=== PATIENT | female | born 1945 | race Caucasian/White ===

== ENCOUNTER → 2023-12-05 13:58 | Outpatient (REF) | payer MEDICARE, OTHER, SELFPAY | LOC: WDC 13:58 | PROVIDERS: ATTENDING PHYSICIAN Internal Medicine | DX: Z12.31 Encounter for screening mammogram for malignant neoplasm of breast (principal) | CPT/HCPCS: 77063; 77067 ==

== ENCOUNTER 2024-02-05 04:26 | Inpatient (IN) | payer MEDICARE, OTHER, SELFPAY ==
[2024-02-04 23:26] VITALS: BP 208/86
[2024-02-04 23:30] VITALS: BMI 29.7
[2024-02-04 23:41] LABS: % Basophils 0.5 % (0-2); % Eosinophils 0.6 % (0-6); % Immature Granulocytes 0.5 % (0-0.5); % Lymphocytes 10.3 % (20.5-51.1); % Monocytes 4.4 % (1.7-9.3); % Neutrophils 83.7 % (42.2-75.2); Absolute Basophils 0.1 10^3/uL (0-0.2); Absolute Eosinophils 0.1 10^3/uL (0-0.7); Absolute Immature Granulocytes 0.1 10^3/uL (0-0.05); Absolute Lymphocytes 1.5 10^3/uL (1.2-3.4); Absolute Monocytes 0.6 10^3/uL (0.1-0.6); Absolute Neutrophils 11.8 10^3/uL (1.4-6.5); Hematocrit 44.3 % (37.0-47.0); Hemoglobin 15.4 g/dL (12.0-16.0); Mean Corp Hgb Conc. 34.8 g/dL (33.0-37.0); Mean Corpuscular Hgb 29.6 pg (27.0-31.0); Mean Corpuscular Volume 85.2 fL (81.0-99.0); Mean Platelet Volume 11.2 fL (7.4-10.4); Nucleated Red Blood Cells % 0 %; Platelet Count 237 10^3/uL (130-400); Red Cell Dist. Width 12.2 % (11.5-14.5); White Blood Cell Count 14.1 10^3/uL (4.8-10.8)
[2024-02-04 23:55] VITALS: BP 177/91
[2024-02-04 23:55] LABS: ALT (SGPT) 69 U/L (0-35); AST (SGOT) 50 U/L (14-36); Albumin 4.3 g/dl (3.5-5.0); Alkaline Phosphatase 172 U/L (38-126); Blood Urea Nitrogen 15 mg/dl (7-17); Calcium 9.2 mg/dl (8.4-10.2); Carbon Dioxide 26 mmol/L (22-30); Chloride 102 mmol/L (98-107); Estimated Creatinine Clearance 77 ml/min; Glucose 174 mg/dl (70-99); Potassium 3.7 mmol/L (3.5-5.1); Sodium 137 mmol/L (135-145); Total Bilirubin 0.5 mg/dl (0.2-1.3); Total Protein 7.1 g/dl (6.3-8.2); eGFR > 60.00
[2024-02-05] VITALS (26 sets, daily range): BP systolic 113–192; BP diastolic 40–98; BMI 29.3
[2024-02-05 00:06] LABS: Troponin I < 0.012 ng/ml
[2024-02-05 00:48] LABS: Lipase 135 U/L (23-300)
--- NOTE | 2024-02-05 01:30 | ED.GENMED ---
History of Present Illness
General
Chief Complaint: Chest Pain
Source: patient
Exam Limitations: none
Time Seen by Provider: 02/04/24 23:24
Travel History
Have you had any contact with someone who has COVID-19?: No
Do you have any symptoms of coronavirus? Fever > 100 degrees, chills, cough, shortness of breath, sore throat, loss of taste or smell, muscle aches, or headache?: No
History of Present Illness
History of Present Illness:
78-year-old female who presents with epigastric abdominal pain. She had a similar episode last week. On the right today pain started around 4:30 PM. She did try to eat a little bit for dinner. She states her appetite has been suppressed a bit
this evening. No fevers. No diarrhea. No melena. No shortness of breath.
Past History
Past History
ED Past Medical History: GERD, Hypercholesterolemia and Other (dry macular degeneration)
ED Past Surgical History: None
Social History
Tobacco: Non-smoker
Alcohol: None
Personal: Single
Family History
Family History: Other (Father with ALS)
Phy Exam
Physical Exam
Physical Exam:
CONSTITUTIONAL Patient alert and oriented to person, place and time. Well-appearing. Vital signs reviewed.
HEAD atraumatic, normocephalic.
EYES eyelids normal to inspection, Extraocular muscles intact, Conjunctiva normal, Sclera normal.
NECK normal range of motion, Trachea midline, no jugular venous distention.
RESPIRATORY CHEST No respiratory distress noted, Chest expansion equal, Bilateral breath sounds clear.
CARDIOVASCULAR regular rate and rhythm, systolic ejection murmur noted
ABDOMEN mild epigastric tenderness, moderate right upper quadrant tenderness.
BACK normal inspection, no obvious deformities
UPPER EXTREMITY range of motion normal, Motor strength normal, no cyanosis, no edema.
LOWER EXTREMITY range of motion normal, Motor strength normal, no cyanosis, no edema.
NEURO Speech normal, No focal motor deficits, Cintia coma scale 15, Memory normal, Cranial Nerves intact to screening exam.
Scores
Heart Score for Chest Pain Patients
STEMI patient?: Not applicable
Course
Orders/Labs/Results
Orders:
Orders
02/04/24 23:25
Electrocardiogram (*1) Urgent
Reason for Study: Chest Pain
EKG- Treatment ONCE
02/04/24 23:30
Complete Blood Count/With Diff Urgent
Comprehensive Metabolic Panel Urgent
Lipase Urgent
Comment: ADD ON
Troponin I Urgent
02/04/24 23:59
Add On- LAB Urgent
Tests Added?: lipase
02/05/24 00:04
CT Abd/pelvis W Iv Cont Urgent
Reason For Exam: mid abd pain, leukocytosis
02/05/24 01:39
Morphine Sulfate 2 mg IV NOW STA
02/05/24 01:44
Ampicillin/Sulbactam 3 G [Unasyn] 3 gm 0.9% Sodium Chloride 100 ml [Nss] 100 ml IV NOW
Abnormal Lab Results
02/04/24
23:30
WBC 14.1 H 10^3/uL
(4.8-10.8)
MPV 11.2 H fL
(7.4-10.4)
Abs Immat Gran (auto) 0.1 H 10^3/uL
(0-0.05)
Absolute Neuts (auto) 11.8 H 10^3/uL
(1.4-6.5)
Neutrophils % 83.7 H %
(42.2-75.2)
Lymphocytes % 10.3 L %
(20.5-51.1)
Glucose 174 H mg/dl
(70-99)
AST 50 H U/L
(14-36)
ALT 69 H U/L
(0-35)
Alkaline Phosphatase 172 H U/L
(38-126)
02/04/24 23:30
02/04/24 23:30
Vital Signs
Initial and Last Documented VS:
Initial Vital Signs
Temp Pulse Resp BP Pulse Ox
98.8 F 86 19 208/86 96
02/04/24 23:26 02/04/24 23:26 02/04/24 23:26 02/04/24 23:26 02/04/24 23:26
Last Documented Vital Signs
Temp Pulse Resp BP Pulse Ox
98.8 F 88 20 192/88 91
02/04/24 23:26 02/05/24 01:30 02/05/24 01:30 02/05/24 01:30 02/05/24 01:30
MDM/Problems Addressed
MDM/Problems Addressed:
Cholelithiasis, acute cholecystitis, acute hypertension
*Radiology
Radiology exam reviewed: preliminary read by ED provider (Gallstone noted, no free air) and radiology read reviewed
*Pulse Oximetry
Patient hypoxic: no
*EKG
Interpreted by ED Provider?: Yes
Interpretation: normal
Rate: normal
Rhythm: sinus
Ischemia: non-specific ST changes
*Fire Coordinator Interpretation
Rate: normal
Interpretation: normal
Rhythm: sinus
*Critical Care Note
Total Time (30-74mins, 75-104mins- exclusive of procedures): Not Applicable
Data Reviewed
Review of Other/Old Records Reveals: Other (Prior echocardiogram from April 2023 reveals EF of 55 to 60% and mild . )
Source: patient
Further Testing Considered But Not Given:
Considered ultrasound and CT suspicious for cholecystitis with small bump in LFTs and acidosis noted
Patient Management
Discussion with other providers: Hospitalist
Escalation/DeEscalation of care consider admission/obs:
78-year-old female with epigastric and right upper quadrant pain. Found to have large gallstone and suspected cholecystitis. Does have a leukocytosis of 14 K. IV antibiotics. Admit
ED Attending Note
-
Portions of this chart may have been created with voice recognition software.� Occasional wrong word or��sound alike� substitutions may have occurred due to the inherent limitations of voice recognition software.
Discharge Plan
Departure
Patient Disposition: Admit
Date of Disposition: 02/05/24
Time of Disposition: 01:44
Admit to: Med/Surg
Presentation/result/management discussed w/ accepting MD/DO: Hospitalist
Discharge Problem:
Acute calculous cholecystitis
Prescriptions:
No Action
aspirin [Salty Low Dose Aspirin] 81 MG tablet,delayed release (DR/EC)
81 mg PO DAILY
Centrum Silver 1 EACH tablet
1 ea PO DAILY
esomeprazole magnesium [Nexium 24HR] 20 MG tablet,delayed release (DR/EC)
20 mg PO DAILY
Caltrate-D3 Plus Minerals 1 EACH tablet
1 ea PO DAILY
Oxybutynin Chloride
10 mg PO DAILY
atorvastatin 40 mg Tablet
40 mg PO DAILY
Colace 50 mg Capsule
50 mg PO DAILY PRN (Reason: constipation)
Ocuvite Tablet
1 tab PO DAILY
Referrals:
Malcolm Perry MD [Family Provider] -
Interventions
Interventions:
*Risk Screen - Suicide Last Done: 02/04/24 23:32
*General Assessment Last Done: 02/04/24 23:32
*Neglect/Abuse Screening Last Done: 02/04/24 23:32
*ED COVID-19 Vaccine History Last Done: 02/04/24 23:32
ED- Cardiac Assessment Last Done: 02/05/24 00:00
Discharge Date and Time
Print Language: [place]
[2024-02-05] MEDS: MORPHINE SULFATE 2 MG IV (01:52)
[2024-02-05] MEDS: UNASYN IV ×5 (02:15→23:15)
[2024-02-05] MEDS: TORADOL 15 MG IV (03:18)
--- NOTE | 2024-02-05 03:29 | HPS.HSE ---
Family Physician
-
Family Physician: Malcolm Perry
Chief Complaint
-
Abd Pain
History of Present Illness
Patient is a 78y F with PMH significant for IBS, OAB and CRAO who presents to ED complaining of abdominal pain. Patient states that she developed upper abdominal pain this afternoon around 4:30 PM. She reports nausea but no emesis. Patient
states that she had chills this afternoon as well. She reports a similar episode about 1 1/2 weeks ago that resolved within a few hours. No other prior history of similar events.
Patient reports some residual abdominal discomfort after morphine here in the ED.
Medical History
Past Medical History
Past Medical History: Reports Other
Additional Past Medical History:
ASCVD / Right CRAO
Glaucoma
Macular Degeneration
GERD
OAB
IBS
Osteoporosis
Past Surgical History: Reports Other
Additional Past Surgical History:
Appendectomy
Cataracts
Right Eye Glaucoma Surgery / Stent
Right Shoulder Surgery
Social History
Tobacco: Former Smoker (Quit smoking 15 years ago. Minimal use prior (2 cigarettes / day) < 10 pack years.)
Alcohol: None
Drug: None
Family History
Family History: Not pertinent
Allergies / Home Medications
Allergies reflects when Allergies were last updated in [facility].
Home Medications with original date entered in [facility]
Allergy/Medication List:
Allergies
Allergy/AdvReac Type Severity Reaction Status Date / Time
No Known Allergies Allergy Verified 02/04/24 23:26
Home Medications
Oxybutynin Chloride 10 mg PO DAILY 08/14/19
aspirin 81 mg tablet,delayed release (Salty Low Dose Aspirin) 81 mg PO DAILY 08/14/19
calcium carb 300 mg-D3 20 mcg-mag ox 25 mg-endoscopy tech 0.5 [id number]-[id number] tablet (Caltrate-D3 Plus Minerals) 1 ea PO DAILY 08/14/19
esomeprazole magnesium 20 mg tablet,delayed release (Nexium 24HR) 20 mg PO DAILY 08/14/19
xkkjqvih-bqa-fqyfn acid 0.4 mg-lycopene 300 mcg-lutein 250 mcg tablet (Centrum Silver) 1 ea PO DAILY 08/14/19
atorvastatin 40 mg tablet 40 mg PO DAILY 02/04/24
docusate sodium 50 mg capsule 50 mg PO DAILY PRN constipation 02/04/24
vitamin A-vitamin C-vit E-min tablet 1 tab PO DAILY 02/04/24
Review of Systems
-
History Source: Patient
A 12 point ROS was completed and negative except as noted: Yes
Constitutional: Reports Chills; Denies Fever or Fatigue
EENT: Denies Sore Throat
Respiratory: Denies Cough or Trouble Breathing
Cardiac: Denies Chest Pain, Diaphoresis or Palpitations
Abdomen/GI: Reports Abdominal Pain and Nausea; Denies Vomiting, Diarrhea or Constipated
: Denies Dysuria or Frequency
Musculoskeletal: Denies Joint Pain or Edema
Neurological: Denies Dizzy or Headache
Psych: Denies Depression or Anxiety
Physical Exam
Vital Signs
Vital Signs
Temp Pulse Resp BP Pulse Ox
98.8 F 79 16 147/79 93
02/04/24 23:26 02/05/24 02:32 02/05/24 02:32 02/05/24 02:32 02/05/24 02:32
Physical Exam
General: Other (78y F in mild distress due to abdominal pain.)
HEENT: Moist mucous membranes and PERRLA
Respiratory: Clear; No Wheezes, Rales or Rhonchi
Cardiac: S1/S2, Regular Rhythm and Murmur (III/ KIRSTEN)
GI: Soft, Non Distended, Normal Bowel Sounds and Other (Mild tenderness RUQ and epigastric regions. No rebound / guarding.)
Musculoskeletal: No Clubbing, No Cyanosis and No Edema
Neuro: AO x 3
Laboratory Results
-
02/04/24 23:30
02/04/24:30
Laboratory Results
Total Bilirubin 0.5 mg/dl (0.2-1.3) 02/04/24:30
AST 50 U/L (14-36) H 02/04/24 23:30
ALT 69 U/L (0-35) H 02/04/24:30
Alkaline Phosphatase 172 U/L (38-126) H 02/04/24:30
Troponin I < 0.012 ng/ml 02/04/24:30
Lipase 135 U/L (23-300) 02/04/24:
Impression/Plan
-
A/P: Patient is a 78y F with PMH significant for GERD, OAB and CRAO who presents to ED complaining of abdominal pain.
Cholelithiasis +/- Cholecystitis
- Admit for further evaluation and treatment.
- Patient is afebrile and non-toxic appearing.
- Abnormal LFTs in hepatocellular and not cholestatic pattern.
- Continue IV abx given mild leukocytosis, reported chills, etc.
- NPO, IVFs, pain control, etc.
- Check US in AM for further evaluation. +/- HIDA if needed.
- Surgery eval for additional recommendations.
ASCVD / CRAO
- Prior central retinal artery occlusion / resultant glaucoma (Summer 2022).
- Continue low dose ASA. Hold statin acutely.
GERD
- Stable. Continue daily PPI.
DVT Prophylaxis: SCDs
Code Status: Full
[2024-02-05] MEDS: NSS 1000 IV ×2 (04:58→16:43)
--- NOTE | 2024-02-05 05:06 | PTCARENOTE ---
Pt. arrived to unit from ED via stretcher. Pt. able to safely ambulate into room 336-2 on . Pt. AAOx3 and able to make needs known. Pt. with no c/o pain. Oriented to unit. Call hernandez within reach. Plan of care ongoing.
[2024-02-05 06:21] LABS: Hematocrit 44.1 % (37.0-47.0); Hemoglobin 14.9 g/dL (12.0-16.0); Mean Corp Hgb Conc. 33.8 g/dL (33.0-37.0); Mean Corpuscular Hgb 29.2 pg (27.0-31.0); Mean Corpuscular Volume 86.5 fL (81.0-99.0); Mean Platelet Volume 11.4 fL (7.4-10.4); Platelet Count 230 10^3/uL (130-400); Red Cell Dist. Width 12.2 % (11.5-14.5); White Blood Cell Count 13.4 10^3/uL (4.8-10.8)
[2024-02-05 06:42] LABS: ALT (SGPT) 56 U/L (0-35); AST (SGOT) 50 U/L (14-36); Albumin 3.8 g/dl (3.5-5.0); Alkaline Phosphatase 159 U/L (38-126); Blood Urea Nitrogen 12 mg/dl (7-17); Calcium 9.2 mg/dl (8.4-10.2); Carbon Dioxide 25 mmol/L (22-30); Chloride 104 mmol/L (98-107); Direct Bilirubin 0.3 mg/dl (0.0-0.4); Estimated Creatinine Clearance 76 ml/min; Glucose 124 mg/dl (70-99); Potassium 3.9 mmol/L (3.5-5.1); Sodium 138 mmol/L (135-145); Total Bilirubin 0.6 mg/dl (0.2-1.3); Total Protein 6.4 g/dl (6.3-8.2); eGFR > 60.00
[2024-02-05] MEDS: NSS (PRESERVATIVE FREE) 10 ML IV (09:29)
[2024-02-05] MEDS: PROTONIX IV 40 MG IV (09:29)
[2024-02-05] MEDS: ASPIR LOW (ENTERIC COATED) 81 MG PO (09:30)
--- NOTE | 2024-02-05 09:36 | CON.GS ---
Consultation
-
Reason for Consultation: cholecystitis
Medical History
-
Chief Complaint: abd pain
History of Present Illness:
Patient is a 78-year-old female who was in her usual baseline state of health until yesterday afternoon when she developed the acute onset of bandlike upper abdominal pain radiating to the epigastrium. She has never had pain like this in the past.
She had lunch and within a couple hours her symptoms started. Initially she thought it was hunger pains so she had meatloaf for an early dinner but her pain got worse with associated nausea and anorexia but no vomiting. Bowel movements moving
regularly yesterday.
This a.m. her pain had initially improved but it feels like it is returning. Nausea resolved. No fevers chills or sweats. No additional symptoms reported.
Past Medical History
Past Medical History: Other ( Retinal artery occlusion -right eye, GERD, hypercholesterolemia)
Past Surgical History: Appendectomy
Social History
Tobacco: Non-Smoker
Alcohol: None
Living: Alone
Family History
Family History: Reviewed & Noncontributory
Allergies / Home Medications
Allergy/AdvReac Type Severity Reaction Status Date / Time
No Known Allergies Allergy Verified 02/04/24 23:26
�Medication �Instructions �Recorded �Confirmed �Type
Oxybutynin Chloride 10 mg PO DAILY 08/14/19 02/05/24 History
aspirin 81 mg tablet,delayed 81 mg PO DAILY 08/14/19 02/05/24 History
release (Salty Low Dose Aspirin)
calcium carb 300 mg-D3 20 mcg-mag 1 ea PO DAILY 08/14/19 02/05/24 History
ox 25 mg-telescope operator 0.5 [id number]
tablet (Caltrate-D3 Plus Minerals)
esomeprazole magnesium 20 mg 20 mg PO DAILY 08/14/19 02/05/24 History
tablet,delayed release (Nexium
24HR)
lpikpsrt-kpf-aojho acid 0.4 1 ea PO DAILY 08/14/19 02/05/24 History
mg-lycopene 300 mcg-lutein 250 mcg
tablet (Centrum Silver)
atorvastatin 40 mg tablet 40 mg PO DAILY 02/04/24 02/05/24 History
docusate sodium 50 mg capsule 50 mg PO DAILY PRN constipation 02/04/24 02/05/24 History
vitamin A-vitamin C-vit E-min 1 tab PO DAILY 02/04/24 02/05/24 History
tablet
Review of Systems
-
History Source: Patient
All other systems: Negative unless noted
A 10 point review of systems was completed, and was negative except as per HPI.
Physical Exam
Vital Signs
Temp Pulse Resp BP Pulse Ox
98.2 F 80 16 170/76 95
02/05/24 07:46 02/05/24 07:46 02/05/24 07:46 02/05/24 07:46 02/05/24 07:46
02/04/24 02/05/24 02/06/24
06:59 06:59 06:59
Actual Weight 74.984 kg
Body Mass Index (BMI) 29.3
Lab Results
02/05/24 05:35
02/05/24 05:35
WBC 13.4 10^3/uL (4.8-10.8) H 02/05/24 05:35
Hgb 14.9 g/dL (12.0-16.0) 02/05/24 05:35
Hct 44.1 % (37.0-47.0) 02/05/24 05:35
Plt Count 230 10^3/uL (130-400) 02/05/24 05:35
Abs Immat Gran (auto) 0.1 10^3/uL (0-0.05) H 02/04/24 23:30
Neutrophils % 83.7 % (42.2-75.2) H 02/04/24 23:30
Physical Exam
General: Well Developed, Well Nourished, No Apparent Distress and Comfortable
HEENT: Normocephalic, Anicteric and Moist Mucous Membranes
Respiratory: Non Labored Respirations
Cardiac: Regular Rhythm
GI: Soft, Non Distended and Tender (Right upper quadrant epigastrium. No rebound, no rigidity, no guarding)
Skin: Warm
Neuro: AO x 3
Psych: Calm
Data Reviewed
-
CT Scan: Image Personally Visualized and interpreted
Ultrasound: Image Personally Visualized and interpreted
Labs: Labs Reviewed by me
Assessment / Plan
-
Assessment: 78-year-old female presenting with acute calculus cholecystitis and resultant intractable abdominal pain and leukocytosis.
CT imaging personally reviewed as well as radiologist report. Gallstone in the region of the neck of the gallbladder. Gallbladder appears to be tensely distended with some signs of inflammation. No significant wall thickening.
AST, ALT and alkaline phosphatase elevated, bilirubin normal. No biliary ductal dilation.
Reviewed with patient's indications for cholecystectomy. Patient in agreement to proceed with surgery.
Laparoscopic cholecystectomy with possible intraoperative cholangiogram was reviewed in detail including the operative technique utilizing a diagram/drawing. We discussed alternative treatment options including nonoperative management. Reviewed
benefits and risks of the procedure such as but not limited to bleeding, infectious or wound related complications, iatrogenic injury to surrounding viscera, common bile duct injury, bile leak, postcholecystectomy fatty food intolerances. Any other
patient's concerns or questions were fully addressed and written informed consent was obtained.
Plan: Patient has been added onto the OR schedule for laparoscopic cholecystectomy today
N.p.o.
IV fluid hydration and supportive care pending or availability
Patient was initiated on Unasyn for antibiotic coverage, this can be continued perioperatively.
--- NOTE | 2024-02-05 10:18 | CM ---
Patient seen at bedside. Patient for possible surgery today. Patient stated she was told it was a SDC and that she would be discharged home tomorrow. Patient indicated that she would have transportation home and that she lived alone in a 2 story
home with a first floor set up. Patient PCP is Dr. Perry and she uses the [facility] on [address] CM will continue to follow for discharge planning needs.
Plan; home with no needs anticipated.
--- NOTE | 2024-02-05 11:20 | W.PN.HOSP.TC ---
Today's Communication/Plan
-
OR today
Assessment / Plan
Assessment / Plan
78-year-old female admitted because of abdominal pain. Started yesterday afternoon. She also had some chills similar episode a week and a half ago which resolved on its own. Normal bowel movements yesterday
USS-Cholelithiasis without secondary sonographic findings that would be considered suspicious for acute cholecystitis
CT scan-Cholelithiasis with suspicion for mild pericholecystic inflammation.
[facility]: S1-S2 normal
Chest: CTA B/L
Abdomen: Soft, epigastric tenderness, bowel sounds present
Extremities: No edema, normal pulses
PRACTICE CONSULTANT: Non focal exam
# Early Acute Cholecystitis with cholelithiasis
Abdominal pain, tenderness on palpation
Elevated LFTs
For cholecystectomy today by Dr. Ch
Continue Unasyn
N.p.o. with IV fluids now
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
Continue aspirin
Hold statin because of elevated LFTs
# GERD-continue PPI
# Trace mitral regurgitation and mild aortic stenosis
# DVT prophylaxis-SCDs
#Full CODE
Discussed with nursing
Discussed with Dr. Ch
Anticipated Discharge: Within 24 hours
Subjective/Interval History
-
Date of Service: February 05, 2024
Objective Data
-
Labs:
Laboratory Results
02/04/24 02/05/24
23:30 05:35
WBC 14.1 H 13.4 H
Hgb 15.4 14.9
Hct 44.3 44.1
Plt Count 237 230
Sodium 137 138
Potassium 3.7 3.9
Chloride 102 104
Carbon Dioxide 26 25
BUN 15 12
Creatinine 0.6 0.6
Glucose 174 H 124 H
Calcium 9.2 9.2
Total Bilirubin 0.5 0.6
AST 50 H 50 H
ALT 69 H 56 H
Alkaline Phosphatase 172 H 159 H
Vital Signs:
Vital Signs
Temp Pulse Resp BP Pulse Ox
98.2 F 80 16 170/76 95
02/05/24 07:46 02/05/24 07:46 02/05/24 07:46 02/05/24 07:46 02/05/24 07:46
--- NOTE | 2024-02-05 12:27 | W.SUR.PREOP ---
Pre-Operative Surgical Note
-
I have examined this patient prior to the performance of the scheduled procedure.
The patient's condition is unchanged from the time of the current History and
Physical and the patient is able to undergo the scheduled procedure.
--- NOTE | 2024-02-05 14:10 | W.IMMPOSTOP ---
Addendum entered and electronically signed by Cole Ch MD 02/05/24 14:25:
#[id number]
Original Note:
Surgical Immed Post Op Note
-
Primary Surgeon: Jing
Assisting Surgeon: Mehdi NELSON
Pre-op Diagnosis: Acute calculus cholecystitis
Post-op Diagnosis: Acute calculus cholecystitis
Procedure Performed: Laparoscopic cholecystectomy
Anesthesia Type: GETA +0.25% Marcaine
Specimen / Cultures: Gallbladder
Estimated Blood Loss: 20 mL
Complications: None immediate
Operative Findings: Tensely distended gallbladder, cyst needle decompression revealing hydropic bile confirming cystic duct obstruction from acute calculus cholecystitis. Large gallstone in the neck of the gallbladder. Thickened inflammatory
tissues around the cystic triangle but careful dissection identified cystic duct and artery which were individually controlled with hemoclips. Gallbladder removed off liver bed but intimately adherent to liver capsule. No spillage of gallstones.
Plan: Routine postoperative care, advancing diet as tolerated continue with antibiotics during hospitalization
Patient advised me she did not have any family or friends to update postoperatively regarding the procedure.
[2024-02-05] MEDS: APRESOLINE 5 MG IV (15:42)
--- NOTE | 2024-02-05 16:40 | PTCARENOTE ---
pt returned from OR VSS, no C/O pain CB in reach
[2024-02-05] MEDS: PRED FORTE 1% EYE DROPS 1 DROP RIGHT EYE (19:58)
[2024-02-05] MEDS: COSOPT EYE DROPS 1 DROP RIGHT EYE (19:58)
[2024-02-06] MEDS: NSS 1000 IV ×2 (00:32→10:16)
[2024-02-06 03:00] VITALS: BP 149/79
[2024-02-06] MEDS: UNASYN IV ×3 (05:36→17:11)
[2024-02-06 06:41] LABS: Hematocrit 43.3 % (37.0-47.0); Hemoglobin 14.7 g/dL (12.0-16.0); Mean Corp Hgb Conc. 33.9 g/dL (33.0-37.0); Mean Corpuscular Hgb 29.9 pg (27.0-31.0); Mean Corpuscular Volume 88.2 fL (81.0-99.0); Mean Platelet Volume 11.2 fL (7.4-10.4); Platelet Count 234 10^3/uL (130-400); Red Blood Cell Count 4.91 10^6/uL (4.20-5.40); Red Cell Dist. Width 12.7 % (11.5-14.5); White Blood Cell Count 20.6 10^3/uL (4.8-10.8)
[2024-02-06 07:02] LABS: ALT (SGPT) 91 U/L (0-35); AST (SGOT) 87 U/L (14-36); Albumin 3.5 g/dl (3.5-5.0); Alkaline Phosphatase 131 U/L (38-126); Blood Urea Nitrogen 9 mg/dl (7-17); Calcium 8.5 mg/dl (8.4-10.2); Carbon Dioxide 26 mmol/L (22-30); Chloride 108 mmol/L (98-107); Direct Bilirubin 0.2 mg/dl (0.0-0.4); Estimated Creatinine Clearance 76 ml/min; Glucose 112 mg/dl (70-99); Potassium 3.6 mmol/L (3.5-5.1); Sodium 142 mmol/L (135-145); Total Bilirubin 0.8 mg/dl (0.2-1.3); Total Protein 6.1 g/dl (6.3-8.2); eGFR > 60.00
[2024-02-06 08:00] VITALS: BP 147/73
[2024-02-06] MEDS: NSS (PRESERVATIVE FREE) 10 ML IV (08:05)
[2024-02-06] MEDS: PROTONIX IV 40 MG IV (08:05)
[2024-02-06] MEDS: ASPIR LOW (ENTERIC COATED) 81 MG PO (08:06)
[2024-02-06] MEDS: PRED FORTE 1% EYE DROPS 1 DROP RIGHT EYE ×2 (08:06→19:57)
[2024-02-06] MEDS: COSOPT EYE DROPS 1 DROP RIGHT EYE ×2 (08:06→19:57)
--- NOTE | 2024-02-06 09:48 | W.PN.HOSP.TC ---
Today's Communication/Plan
-
Advance diet
DC planning
Assessment / Plan
Assessment / Plan
78-year-old female admitted because of abdominal pain. Started yesterday afternoon. She also had some chills similar episode a week and a half ago which resolved on its own. Normal bowel movements yesterday
USS-Cholelithiasis without secondary sonographic findings that would be considered suspicious for acute cholecystitis
CT scan-Cholelithiasis with suspicion for mild pericholecystic inflammation.
#Acute Cholecystitis with cholelithiasis
S/p lap cholecystectomy.
Improved abdominal symptoms.
Slightly elevated AST ALT and white count noted. Operative report noted-might be explained by the inflammatory findings in and around the gallbladder. Symptomatically and clinically improved. Advance diet per surgery. Would continue with
antibiotics for another 5 days in total. Will switch to p.o. if she is getting discharge from surgical standpoint.
Repeat LFTs as OP
# GERD-continue PPI
# Trace mitral regurgitation and mild aortic stenosis
# DVT prophylaxis-SCDs
#Full CODE
Anticipated Discharge: Today
Subjective/Interval History
-
Date of Service: February 06, 2024
Tolerating clear liquid diet. Improved abdominal pain.
No nausea vomiting.
No fever or chills.
Objective Data
-
Labs:
Laboratory Results
02/06/24
06:16
WBC 20.6 H
Hgb 14.7
Hct 43.3
Plt Count 234
Sodium 142
Potassium 3.6
Chloride 108 H
Carbon Dioxide 26
BUN 9
Creatinine 0.6
Glucose 112 H
Calcium 8.5
Total Bilirubin 0.8
AST 87 H
ALT 91 H
Alkaline Phosphatase 131 H
Vital Signs:
Vital Signs
Temp Pulse Resp BP Pulse Ox
98 F 88 16 147/73 92
02/06/24 08:00 02/06/24 08:00 02/06/24 08:00 02/06/24 08:00 02/06/24 08:00
I&O
02/05/24 02/06/24 02/07/24
06:59 06:59 06:59
Intake Total 390 / 390
Output Total 475 / 475
Balance -85 / -85
Review of Systems
-
Respiratory: Denies Trouble Breathing
Cardiac: Denies Chest Pain
Neuro: Denies Dizzy
Physical Exam
-
General: No Apparent Distress
HEENT: Moist Mucous Membranes
Respiratory: Clear to Auscultation
Cardiac: Regular Rhythm and S1/S2
GI: Soft, Nontender (Apart from trocar sites), Nondistended and Normal Bowel Sounds
Neuro: AO x 3
Data Reviewed
-
Labs: Labs Reviewed by me
--- NOTE | 2024-02-06 10:15 | W.PN.GS2 ---
Addendum entered and electronically signed by Cole Ch MD 02/06/24 12:00:
Patient seen and examined with nurse practitioner this a.m. Agree with documented progress note.
Patient feels well, no nausea, appetite returning.
Passing flatus overnight. Postoperative incisional pain mild and controlled. No generalized abdominal pain.
AF VSS
ABD: Soft, nondistended, mild tenderness palpation only at the incision sites. Incisions with clean dressings. No rebound rigidity or guarding.
A/P: 78-year-old female POD #1 status post lap ronny
Leukocytosis likely reactive particularly given stable vitals and benign abdominal examination as well as severity of acute calculus cholecystitis encountered yesterday
Would keep on IV antibiotics today and anticipate discharge home tomorrow on Augmentin for a 5-day course
Otherwise low-fat diet as tolerated
Repeat CBC tomorrow a.m.
Original Note:
Today's Communication / Plan
-
Advance diet
Assessment / Plan
-
78-year-old female presenting with acute calculus cholecystitis and resultant intractable abdominal pain and leukocytosis.
POD #1 lap ronny
AFVSS
WBC with increase post op, not unexpected given the degree of gallbladder disease noted intraoperatively
Bilirubin normal
--Advance to LFD
--C/W ABX, would recommend 5 day post op course (can convert to PO upon d/c)
--CBC in am
--Multimodal analgesics
Tentative d/c tomorrow if tolerating diet, labs improved, afebrile
Subjective Data
-
Date of Service: February 06, 2024
Patient seen and examined at bedside with Dr. Ch. Denies n/v. Some discomfort at incisions but manageable. Passing flatus.
Objective Data
-
Intake and Output
02/05/24 02/06/24 02/07/24
06:59 06:59 06:59
Intake Total 390 / 390
Output Total 475 / 475
Balance -85 / -85
Intake:
Oral fluids 240 / 240
IV fluids (Total) 150 / 150
Normosol 150 / 150
Output:
Urine, Voided 475 / 475
Other:
Number of approximated MODERATE 1 2
amounts of urine
Vital Signs
Temp Pulse Resp BP Pulse Ox
98 F 88 16 147/73 92
02/06/24 08:00 02/06/24 08:00 02/06/24 08:00 02/06/24 08:00 02/06/24 08:00
Lab Results
02/06/24 06:16
02/06/24 06:16
Calcium 8.5 mg/dl (8.4-10.2) 02/06/24 06:16
Total Bilirubin 0.8 mg/dl (0.2-1.3) 02/06/24 06:16
Direct Bilirubin 0.2 mg/dl (0.0-0.4) 02/06/24 06:16
AST 87 U/L (14-36) H 02/06/24 06:16
ALT 91 U/L (0-35) H 02/06/24 06:16
Alkaline Phosphatase 131 U/L (38-126) H 02/06/24 06:16
Total Protein 6.1 g/dl (6.3-8.2) L 02/06/24 06:16
Albumin 3.5 g/dl (3.5-5.0) 02/06/24 06:16
Physical Exam
-
NAD
ABD soft, mild incisional tenderness, ND
Incisions clear, dry, intact glue
[2024-02-06 11:22] VITALS: BP 146/88
[2024-02-06 15:00] VITALS: BP 157/75
--- NOTE | 2024-02-06 16:16 | CM ---
Care management following for d/c planning
Diet as tolerated. Transitioning to PO antibiotics in AM
CM will follow for needs
Plan - anticipate home no needs
[2024-02-06 23:00] VITALS: BP 151/79
[2024-02-07] MEDS: UNASYN IV ×3 (00:25→11:46)
[2024-02-07 06:37] LABS: Hematocrit 39.6 % (37.0-47.0); Hemoglobin 13.6 g/dL (12.0-16.0); Mean Corp Hgb Conc. 34.3 g/dL (33.0-37.0); Mean Corpuscular Hgb 29.7 pg (27.0-31.0); Mean Corpuscular Volume 86.5 fL (81.0-99.0); Platelet Count 184 10^3/uL (130-400); Red Blood Cell Count 4.58 10^6/uL (4.20-5.40); Red Cell Dist. Width 12.8 % (11.5-14.5); White Blood Cell Count 12.5 10^3/uL (4.8-10.8)
[2024-02-07 07:54] VITALS: BP 169/85
[2024-02-07] MEDS: COLACE 100 MG PO (07:59)
[2024-02-07] MEDS: PROTONIX 40 MG PO (07:59)
[2024-02-07] MEDS: ASPIR LOW (ENTERIC COATED) 81 MG PO (07:59)
[2024-02-07] MEDS: PRED FORTE 1% EYE DROPS 1 DROP RIGHT EYE (08:01)
[2024-02-07] MEDS: COSOPT EYE DROPS 1 DROP RIGHT EYE (08:01)
--- NOTE | 2024-02-07 10:01 | W.PN.GS2 ---
Addendum entered and electronically signed by Cole Ch MD 02/07/24 10:08:
pt overall doing well post op
expected lingering incisional post op pain
amrita low fat diet
AFVSS
ABD: soft, TTP localized to incisions
incisions with glue, localized ecchymosis, no hematomas
A/P: POD#2 s/p lap ronny
d/c home with additional 5 day course of Augmentin
post op follow up in 2 weeks
Original Note:
Today's Communication / Plan
-
dispo planning
Assessment / Plan
-
78-year-old female presenting with acute calculus cholecystitis and resultant intractable abdominal pain and leukocytosis.
POD #2 lap ronny
AFVSS
WBC trending down
Tolerating diet
--ContinueLFD
--C/W ABX, would recommend 5 day post op course (can convert to PO upon d/c)
--CBC in am
--Multimodal analgesics
Clear for d/c from surgical standpoint
Subjective Data
-
Date of Service: February 07, 2024
Patient seen and examined at bedside with Dr Ch. Denies n/v. Tolerating diet. Incisional and RUQ soreness, improving. Passing flatus.
Objective Data
-
Intake and Output
02/06/24 02/07/24 02/08/24
06:59 06:59 06:59
Intake Total 390 / 390 2880 / 2880
Output Total 475 / 475
Balance -85 / -85 2880 / 2880
Intake:
Oral fluids 240 / 240 1560 / 1560
IV fluids (Total) 150 / 150 1320 / 1320
Normosol 150 / 150
Output:
Urine, Voided 475 / 475
Other:
Number of approximated MODERATE 2 3
amounts of urine
Vital Signs
Temp Pulse Resp BP Pulse Ox
99.1 F 92 16 169/85 93
02/07/24 07:54 02/07/24 07:54 02/07/24 07:54 02/07/24 07:54 02/07/24 07:54
Lab Results
02/07/24 06:15
02/06/24 06:16
Calcium 8.5 mg/dl (8.4-10.2) 02/06/24 06:16
Total Bilirubin 0.8 mg/dl (0.2-1.3) 02/06/24 06:16
Direct Bilirubin 0.2 mg/dl (0.0-0.4) 02/06/24 06:16
AST 87 U/L (14-36) H 02/06/24 06:16
ALT 91 U/L (0-35) H 02/06/24 06:16
Alkaline Phosphatase 131 U/L (38-126) H 02/06/24 06:16
Total Protein 6.1 g/dl (6.3-8.2) L 02/06/24 06:16
Albumin 3.5 g/dl (3.5-5.0) 02/06/24 06:16
Physical Exam
-
NAD
ABD soft, incisional tenderness to upper midline incision (expected), ND
Incisions clear, dry, intact glue
--- NOTE | 2024-02-07 10:12 | W.PN.HOSP.TC ---
Today's Communication/Plan
-
DC planning
Assessment / Plan
Assessment / Plan
78-year-old female admitted because of abdominal pain. Started yesterday afternoon. She also had some chills similar episode a week and a half ago which resolved on its own. Normal bowel movements yesterday
USS-Cholelithiasis without secondary sonographic findings that would be considered suspicious for acute cholecystitis
CT scan-Cholelithiasis with suspicion for mild pericholecystic inflammation.
#Acute Cholecystitis with cholelithiasis
S/p lap cholecystectomy.
Improved abdominal symptoms.Tolerating diet.
Slightly elevated AST ALT and white count noted. Operative report noted-might be explained by the inflammatory findings in and around the gallbladder. Symptomatically and clinically improved. Advance diet per surgery. Improved white countWould
continue with antibiotics for another 5 days in total.
Repeat LFTs as OP
# GERD-continue PPI
# Trace mitral regurgitation and mild aortic stenosis
# DVT prophylaxis-SCDs
#Full CODE
DC home if okay from surgical standpoint
Anticipated Discharge: Today
Subjective/Interval History
-
Date of Service: February 07, 2024
tolerating diet without nausea or vomiting.
Some right upper quadrant area discomfort present. No diarrhea.
No fever or chills.
Objective Data
-
Labs:
Laboratory Results
02/07/24
06:15
WBC 12.5 H
Hgb 13.6
Hct 39.6
Plt Count 184 D
Vital Signs:
Vital Signs
Temp Pulse Resp BP Pulse Ox
99.1 F 92 16 169/85 93
02/07/24 07:54 02/07/24 07:54 02/07/24 07:54 02/07/24 07:54 02/07/24 07:54
I&O
02/06/24 02/07/24 02/08/24
06:59 06:59 06:59
Intake Total 390 / 390 2880 / 2880
Output Total 475 / 475
Balance -85 / -85 2880 / 288
Review of Systems
-
Respiratory: Denies Trouble Breathing
Cardiac: Denies Chest Pain
Physical Exam
-
General: No Apparent Distress
HEENT: Moist Mucous Membranes
Respiratory: Clear to Auscultation
Cardiac: Regular Rhythm and S1/S2
GI: Soft, Nondistended and Normal Bowel Sounds; Negative Tender (some discomfort in RUQ area but no rebound)
Neuro: AO x 3
Data Reviewed
-
Labs: Labs Reviewed by me
--- NOTE | 2024-02-07 10:18 | W.DS.TRANS ---
DC Summary - [employer]
-
Discharge Instructions:
Discharge Diagnosis/Procedures acute cholecystitis s/p lap ronny
Diet Low Fat,As tolerated
Activity No strenuous activity
Driving Restrictions As prior to admission
Bathing Restrictions OK to Shower
Blood Work Liver function blood test next week -arrange
through your PCP
Instructions:
Stand-Alone Forms:
Changes to Home Medications: Yes
Discharge Medications:
DC Medications w/original date entered in [facility]
aspirin 81 mg tablet,delayed release (Salty Low Dose Aspirin) 81 mg PO DAILY Blood Clot Prevention/Tx 08/14/19
calcium carb 300 mg-D3 20 mcg-mag ox 25 mg-copy center associate 0.5 [id number] tablet (Caltrate-D3 Plus Minerals) 1 ea PO DAILY Supplement 08/14/19
esomeprazole magnesium 20 mg tablet,delayed release (Nexium 24HR) 20 mg PO DAILY Gastrointestinal Issue 08/14/19
dkifsrln-uor-opzhq acid 0.4 mg-lycopene 300 mcg-lutein 250 mcg tablet (Centrum Silver) 1 ea PO DAILY Supplement 08/14/19
oxybutynin chloride 10 mg tablet,extended release 24 hr 10 mg PO DAILY Urinary Issue 08/14/19
atorvastatin 40 mg tablet 40 mg PO DAILY High Cholesterol 02/04/24
docusate sodium 50 mg capsule 50 mg PO DAILY PRN constipation 02/04/24
vitamin A-vitamin C-vit E-min tablet 1 tab PO DAILY Supplement 02/04/24
dorzolamide 22.3 mg-timolol 6.8 mg/mL eye drops 1 drp RIGHT EYE BID glaucoma 02/05/24
prednisolone acetate 1 % eye drops,suspension 1 drp RIGHT EYE BID glaucoma 02/05/24
acetaminophen 325 mg tablet 650 mg (2 x 325 mg) PO Q4HPRN PRN Mild Pain / Temp > 101 #1 tab 02/07/24
amoxicillin 875 mg-potassium clavulanate 125 mg tablet 1 tab PO BID #10 tabs 02/07/24
Home Medication Changes
New medication - Augmentin
Pending Results: No
--- NOTE | 2024-02-07 11:43 | CM ---
Pt for d/c today
Has ride home with friend
Discussed IMM
Plan - home no needs
[2024-02-07 12:42] VITALS: BP 142/63
== END 2024-02-07 13:07 | disposition home or self-care (01) | DRG 419 ==
LOC: 3 WEST ACU 04:26
PROVIDERS: Hospitalist; Registered Nurse; ADMITTING PHYSICIAN Hospitalist; ATTENDING PHYSICIAN Internal Medicine; CONSULT PHYSICIAN Surgery; EMERGENCY PHYSICIAN Emergency Medicine; FAMILY PHYSICIAN Internal Medicine
PROC: 0FT44ZZ Resection of Gallbladder, Percutaneous Endoscopic Approach (ICD-10-PCS; 2024-02-05)
DX: K80.00 Calculus of gallbladder with acute cholecystitis without obstruction (principal); Z87.891 Personal history of nicotine dependence; I25.10 Atherosclerotic heart disease of native coronary artery without angina pectoris; K21.9 Gastro-esophageal reflux disease without esophagitis; Z79.82 Long term (current) use of aspirin
CPT/HCPCS: 88304; 74177; 76700; 80053; 82248; 83690; 84484; 85025; 85027; 93005; 96365; 96375; 99285; Q9967

== ENCOUNTER → 2024-02-18 12:59 | Outpatient (REF) | payer MEDICARE, OTHER, SELFPAY ==
[2024-02-18 16:07] LABS: ALT (SGPT) 38 U/L (0-35); AST (SGOT) 38 U/L (14-36); Albumin 3.9 g/dl (3.5-5.0); Alkaline Phosphatase 134 U/L (38-126); Direct Bilirubin 0.3 mg/dl (0.0-0.4); Total Bilirubin 0.7 mg/dl (0.2-1.3); Total Protein 6.6 g/dl (6.3-8.2)
== END ==
LOC: REG 12:59
PROVIDERS: ATTENDING PHYSICIAN Surgery; FAMILY PHYSICIAN Internal Medicine
DX: Z90.49 Acquired absence of other specified parts of digestive tract (principal); R79.89 Other specified abnormal findings of blood chemistry
CPT/HCPCS: 36415; 80076

== ENCOUNTER → 2024-03-06 07:31 | Outpatient (REF) | payer MEDICARE, OTHER, SELFPAY ==
[2024-03-06 09:35] LABS: Urine Albumin Negative (Neg - Trace); Urine Bilirubin Negative (Negative); Urine Character Clear (Clear); Urine Color Yellow; Urine Glucose Negative (Negative); Urine Ketone Negative (Negative); Urine Leukocyte Trace (Negative); Urine Nitrite Negative (Negative); Urine Occult Blood Negative (Negative); Urine Specific Gravity 1.015 (<1.030); Urine Urobilinogen Negative (Neg - 1+)
[2024-03-06 09:36] LABS: % Basophils 1.3 % (0-2); % Eosinophils 4.6 % (0-6); % Immature Granulocytes 0.3 % (0-0.5); % Lymphocytes 34.8 % (20.5-51.1); % Monocytes 9.2 % (1.7-9.3); % Neutrophils 49.8 % (42.2-75.2); Absolute Basophils 0.1 10^3/uL (0-0.2); Absolute Eosinophils 0.3 10^3/uL (0-0.7); Absolute Lymphocytes 2.1 10^3/uL (1.2-3.4); Absolute Monocytes 0.6 10^3/uL (0.1-0.6); Hematocrit 43.8 % (37.0-47.0); Hemoglobin 14.3 g/dL (12.0-16.0); Mean Corp Hgb Conc. 32.6 g/dL (33.0-37.0); Mean Corpuscular Hgb 29.5 pg (27.0-31.0); Mean Corpuscular Volume 90.3 fL (81.0-99.0); Mean Platelet Volume 11.7 fL (7.4-10.4); Nucleated Red Blood Cells % 0 %; Platelet Count 198 10^3/uL (130-400); Red Blood Cell Count 4.85 10^6/uL (4.20-5.40); Red Cell Dist. Width 12.6 % (11.5-14.5); White Blood Cell Count 6.1 10^3/uL (4.8-10.8)
[2024-03-06 10:10] LABS: ALT (SGPT) 39 U/L (0-35); AST (SGOT) 38 U/L (14-36); Albumin 3.7 g/dl (3.5-5.0); Alkaline Phosphatase 122 U/L (38-126); Blood Urea Nitrogen 12 mg/dl (7-17); Carbon Dioxide 27 mmol/L (22-30); Chloride 107 mmol/L (98-107); Glucose 106 mg/dl (70-99); HDL Cholesterol 55 mg/dl; LDL Cholesterol, Calculated 47 mg/dl; Potassium 3.9 mmol/L (3.5-5.1); Sodium 142 mmol/L (135-145); Total Bilirubin 0.5 mg/dl (0.2-1.3); Total Cholesterol 120 mg/dl (50-199); Total Protein 6.2 g/dl (6.3-8.2); Triglyceride 91 mg/dl (10-149); Very Low Density Lipoprotein 18 mg/dl (0-30); eGFR > 60.00
[2024-03-06 10:16] LABS: Urine Mucus Few; Urine Squamous Cell 16-20 /LPF (Few)
[2024-03-06 10:17] LABS: Urine Amorphous Seen
[2024-03-06 10:18] LABS: Urine Bacteria Moderate (Negative); Urine Red Blood Cell 0-2 /HPF (0-2)
== END ==
LOC: REG 07:31
PROVIDERS: ATTENDING PHYSICIAN Internal Medicine
DX: H34.11 Central retinal artery occlusion, right eye (principal); R79.89 Other specified abnormal findings of blood chemistry; I10 Essential (primary) hypertension
CPT/HCPCS: 36415; 80053; 80061; 81003; 81015; 85025

== ENCOUNTER → 2024-05-27 13:19 | Outpatient (REF) | payer MEDICARE, OTHER, SELFPAY ==
[2024-05-27 15:44] LABS: ALT (SGPT) 42 U/L (0-35); AST (SGOT) 37 U/L (14-36); Albumin 4.1 g/dl (3.5-5.0); Alkaline Phosphatase 113 U/L (38-126); Direct Bilirubin 0.2 mg/dl (0.0-0.4); Total Bilirubin 0.7 mg/dl (0.2-1.3); Total Protein 6.4 g/dl (6.3-8.2)
== END ==
LOC: REG 13:19
PROVIDERS: ATTENDING PHYSICIAN Internal Medicine
DX: R94.5 Abnormal results of liver function studies (principal)
CPT/HCPCS: 36415; 80076

== ENCOUNTER → 2024-12-07 15:03 | Outpatient (REF) | payer MEDICARE, OTHER, SELFPAY | LOC: WDC 15:03 | PROVIDERS: ATTENDING PHYSICIAN Internal Medicine | DX: Z12.31 Encounter for screening mammogram for malignant neoplasm of breast (principal) | CPT/HCPCS: 77063; 77067 ==

== ENCOUNTER → 2025-01-05 06:43 | Outpatient (REF) | payer MEDICARE, OTHER, SELFPAY | LOC: RCS 06:43 | PROVIDERS: ATTENDING PHYSICIAN Internal Medicine Cardiovascular Disease; FAMILY PHYSICIAN Internal Medicine | DX: R06.02 Shortness of breath (principal) | CPT/HCPCS: 78452; 93017; A9500; J2785 ==

== ENCOUNTER → 2025-01-12 13:36 | Outpatient (REF) | payer MEDICARE, OTHER, SELFPAY | LOC: RCS 13:36 | PROVIDERS: ATTENDING PHYSICIAN Internal Medicine Cardiovascular Disease; FAMILY PHYSICIAN Internal Medicine | DX: I35.0 Nonrheumatic aortic (valve) stenosis (principal) | CPT/HCPCS: 93306 ==

== ENCOUNTER → 2025-04-05 13:16 | Outpatient (REF) | payer MEDICARE, OTHER, SELFPAY ==
[2025-04-05 14:34] LABS: Hematocrit 43.6 % (37.0-47.0); Hemoglobin 14.6 g/dL (12.0-16.0); Mean Corp Hgb Conc. 33.5 g/dL (33.0-37.0); Mean Corpuscular Volume 89.0 fL (81.0-99.0); Nucleated Red Blood Cells % 0 %; Platelet Count 193 10^3/uL (130-400); Red Cell Dist. Width 12.1 % (11.5-14.5)
[2025-04-05 15:02] LABS: ALT (SGPT) 29 U/L (0-35); AST (SGOT) 29 U/L (14-36); Albumin 4.0 g/dl (3.5-5.0); Alkaline Phosphatase 111 U/L (38-126); Blood Urea Nitrogen 14 mg/dl (7-17); Calcium 9.3 mg/dl (8.4-10.2); Carbon Dioxide 27 mmol/L (22-30); Chloride 110 mmol/L (98-107); Glucose 162 mg/dl (70-99); Potassium 3.9 mmol/L (3.5-5.1); Sodium 141 mmol/L (135-145); Total Protein 6.4 g/dl (6.3-8.2); eGFR > 60.00
== END ==
LOC: REG 13:16
PROVIDERS: ATTENDING PHYSICIAN Internal Medicine
DX: R06.02 Shortness of breath (principal); R60.9 Edema, unspecified; I35.0 Nonrheumatic aortic (valve) stenosis
CPT/HCPCS: 36415; 71046; 80053; 83880; 85025

== ENCOUNTER → 2025-06-25 08:07 | Outpatient (REF) | payer MEDICARE, OTHER, SELFPAY ==
[2025-06-25 08:53] LABS: Hematocrit 45.9 % (37.0-47.0); Hemoglobin 15.5 g/dL (12.0-16.0); Mean Corp Hgb Conc. 33.8 g/dL (33.0-37.0); Mean Corpuscular Volume 88.8 fL (81.0-99.0); Nucleated Red Blood Cells % 0 %; Platelet Count 198 10^3/uL (130-400); Red Cell Dist. Width 12.6 % (11.5-14.5)
[2025-06-25 09:34] LABS: ALT (SGPT) 36 U/L (0-35); AST (SGOT) 32 U/L (14-36); Albumin 4.1 g/dl (3.5-5.0); Alkaline Phosphatase 102 U/L (38-126); Blood Urea Nitrogen 14 mg/dl (7-17); Calcium 9.4 mg/dl (8.4-10.2); Carbon Dioxide 29 mmol/L (22-30); Chloride 106 mmol/L (98-107); Glucose 117 mg/dl (70-99); HDL Cholesterol 61 mg/dl; LDL Cholesterol, Calculated 45 mg/dl; Potassium 4.1 mmol/L (3.5-5.1); Sodium 141 mmol/L (135-145); Total Protein 6.7 g/dl (6.3-8.2); Very Low Density Lipoprotein 28 mg/dl (0-30); eGFR > 60.00
== END ==
LOC: REG 08:07
PROVIDERS: ATTENDING PHYSICIAN Internal Medicine
DX: R60.9 Edema, unspecified (principal); E78.00 Pure hypercholesterolemia, unspecified
CPT/HCPCS: 36415; 80053; 80061; 85025